=== PATIENT | male | born 1940 | race Caucasian/White ===

== ENCOUNTER 2020-11-21 13:38 | Inpatient (IN) | payer OTHER ==
[2020-11-21 15:16] LABS: INR 1.12 (0.83-1.09); PROTHROMBIN TIME (PATIENT) 13.5 SEC (9.7-13.0)
[2020-11-21 15:19] LABS: ACTIVATED PTT 29.1 SECONDS (25.2-36.5)
[2020-11-21 15:20] LABS: BASO % 0.6 % (0-2.0); EOS % 0.8 % (0-4.5); HEMATOCRIT 37.9 % (35.4-49); HEMOGLOBIN 13.1 GM/dL (11.7-16.9); LYMPH % 9.8 % (8-40); MCH 32.3 pg (25.7-33.7); MCHC 34.4 g/dl (32.0-35.9); MEAN CELL VOLUME 93.8 fl (80-96); MEAN PLT VOLUME 9.2 fl (7.5-11.1); MONO % 10.4 % (3.8-10.2); NEUT % 78.4 % (42.8-82.8); PLATELET COUNT 233 K/MM3 (134-434); RBC 4.04 M/mm3 (4.00-5.60); RDW 13.4 % (11.9-15.9); WHITE BLOOD COUNT 7.7 K/mm3 (4.0-10.0)
[2020-11-21 15:25] LABS: CHLORIDE 108 mmol/L (98-107); SODIUM 138 mmol/L (136-145)
[2020-11-21 15:27] LABS: ALBUMIN 4.3 g/dl (3.4-5.0); CALCIUM 9.5 mg/dL (8.5-10.1)
[2020-11-21 15:28] LABS: ANION GAP 9 MMOL/L (8-16); BLOOD UREA NITROGEN 31.6 mg/dL (7-18); CO2 21 mmol/L (21-32); GLUCOSE,RANDOM 85 mg/dL (74-106)
[2020-11-21 15:31] LABS: CREATININE 1.5 mg/dL (0.55-1.3); SGOT/AST 31 U/L (15-37); SGPT/ALT 10 U/L (13-61)
[2020-11-21 15:32] LABS: BILIRUBIN,TOTAL 1.8 mg/dL (0.2-1); TOT PROT 7.5 g/dl (6.4-8.2)
[2020-11-21 15:33] LABS: ALK PHOS 97 U/L (45-117)
[2020-11-21 15:36] LABS: EPI CELLS 2 /uL (0-25.1); HYALINE CASTS 0 /uL (0-3.1); PH,URINE 6.5 (5.0-8.0); URINE APPEARANCE CLOUDY; URINE BILIRUBIN NEGATIVE (NEGATIVE); URINE COLOR YELLOW; URINE GLUCOSE (UA) NEGATIVE (NEGATIVE); URINE KETONE 2+ (NEGATIVE); URINE LEUK ESTERASE 3+ (NEGATIVE); URINE NITRITE NEGATIVE (NEGATIVE); URINE PROTEIN 1+ (NEGATIVE); URINE RBC 44 /uL (0-23.9); URINE WBC 1843 /uL (0-25.8)
[2020-11-21] MEDS ORDERED: SODIUM CHLORIDE 0.9% 500 ML INFUS.BAG IV ONE (16:27)
[2020-11-21] MEDS ORDERED: cefTRIAXone SODIUM 1 GM VIAL IVPB ONE (16:31)
[2020-11-21] MEDS ORDERED: CEFTRIAXONE 1 GM/50 ML BAG ONE (16:53)
[2020-11-21 17:39] LABS: URINE BACTERIA MANY /uL (0-1359)
[2020-11-21] MEDS ORDERED: CARBIDOPA/LEVODOPA 25/250 TABLET (FP) PO SCH (22:00)
[2020-11-22 01:37] VITALS: BMI 21.1
[2020-11-22] MEDS: HEPARIN NA (PORCINE) 5,000 UNITS/ML 1ML VIAL SQ SCH ×4 (01:46→21:28)
[2020-11-22] MEDS: RIVASTIGMINE TARTRATE 3 MG CAPSULE PO SCH ×3 (01:46→21:28)
[2020-11-22] MEDS: SODIUM CHLORIDE 1,000 ML IV SCH ×4 (01:47→21:27)
[2020-11-22] MEDS ORDERED: rOPINIRole HCL 0.5 MG TABLET PO SCH (06:00)
[2020-11-22] MEDS: CARBIDOPA/LEVODOPA 25/250 TABLET (FP) PO SCH ×4 (06:23→19:02)
[2020-11-22] MEDS: rOPINIRole HCL 0.5 MG TABLET PO SCH ×3 (06:23→17:50)
[2020-11-22] MEDS ORDERED: PT OWN MED DRAWER 7, Y5N ONE ×6 (07:35→20:31)
[2020-11-22 08:51] LABS: HEMATOCRIT 34.7 % (35.4-49); MCH 32.2 pg (25.7-33.7); MCHC 34.8 g/dl (32.0-35.9); MEAN CELL VOLUME 92.8 fl (80-96); MEAN PLT VOLUME 8.9 fl (7.5-11.1); PLATELET COUNT 209 K/MM3 (134-434); RBC 3.74 M/mm3 (4.00-5.60); WHITE BLOOD COUNT 7.5 K/mm3 (4.0-10.0)
[2020-11-22 09:19] LABS: CALCIUM 8.7 mg/dL (8.5-10.1)
[2020-11-22 09:20] LABS: BLOOD UREA NITROGEN 26.2 mg/dL (7-18); MAGNESIUM 2.4 mg/dL (1.8-2.4)
[2020-11-22 09:23] LABS: CREATININE 1.2 mg/dL (0.55-1.3); PHOSPHOROUS 3.5 mg/dL (2.5-4.9)
[2020-11-22] MEDS ORDERED: cefTRIAXone SODIUM 1 GM VIAL ONE (09:43)
[2020-11-22] MEDS ORDERED: DEXTROSE 5%-WATER - 50 ML IVPB ONE (09:44)
[2020-11-22] MEDS ORDERED: PATIENT'S OWN MEDICATION (NON-FORMULARY) (Pimavanserin Tartrate [Nuplazid] 34 MG Capsule) PO SCH (10:00)
[2020-11-22] MEDS: CEFTRIAXONE 1 GM in DEXTROSE 5%-WATER - 50 ML IVPB SCH (10:11)
[2020-11-22] MEDS ORDERED: ACETAMINOPHEN 325 MG TABLET (FP) PO PRN (17:18)
[2020-11-22] MEDS: LIDOCAINE 5% TOPICAL PATCH TP SCH (17:47)
[2020-11-22] MEDS: LIDOCAINE PATCH REMOVAL MC SCH (21:30)
[2020-11-22] MEDS ORDERED: rOPINIRole HCL 1 MG TABLET (FP) PO SCH (22:00)
[2020-11-23] MEDS: SODIUM CHLORIDE 1,000 ML IV SCH ×2 (04:32→18:55)
[2020-11-23] MEDS: CARBIDOPA/LEVODOPA 25/250 TABLET (FP) PO SCH ×4 (06:31→18:04)
[2020-11-23] MEDS: HEPARIN NA (PORCINE) 5,000 UNITS/ML 1ML VIAL SQ SCH ×3 (06:31→21:55)
[2020-11-23] MEDS: rOPINIRole HCL 0.5 MG TABLET PO SCH ×3 (06:31→17:02)
[2020-11-23] MEDS ORDERED: PT OWN MED DRAWER 7, Y5N ONE ×2 (10:34→21:09)
[2020-11-23] MEDS ORDERED: cefTRIAXone SODIUM 1 GM VIAL ONE (10:34)
[2020-11-23] MEDS ORDERED: DEXTROSE 5%-WATER - 50 ML IVPB ONE (10:35)
[2020-11-23] MEDS: LIDOCAINE 5% TOPICAL PATCH TP SCH (11:32)
[2020-11-23] MEDS: CEFTRIAXONE 1 GM in DEXTROSE 5%-WATER - 50 ML IVPB SCH (11:33)
[2020-11-23] MEDS: RIVASTIGMINE TARTRATE 3 MG CAPSULE PO SCH ×2 (11:34→21:55)
[2020-11-23 12:49] LABS: BASO % 0.5 % (0-2.0); EOS % 0.6 % (0-4.5); HEMATOCRIT 35.5 % (35.4-49); HEMOGLOBIN 12.1 GM/dL (11.7-16.9); LYMPH % 4.9 % (8-40); MCH 32.4 pg (25.7-33.7); MCHC 34.1 g/dl (32.0-35.9); MEAN CELL VOLUME 94.9 fl (80-96); MEAN PLT VOLUME 9.3 fl (7.5-11.1); MONO % 9.4 % (3.8-10.2); NEUT % 84.6 % (42.8-82.8); PLATELET COUNT 220 K/MM3 (134-434); RBC 3.74 M/mm3 (4.00-5.60); RDW 13.2 % (11.9-15.9); WHITE BLOOD COUNT 8.2 K/mm3 (4.0-10.0)
[2020-11-23 13:14] LABS: ALBUMIN 3.5 g/dl (3.4-5.0); BLOOD UREA NITROGEN 23.7 mg/dL (7-18); CALCIUM 8.5 mg/dL (8.5-10.1); MAGNESIUM 2.3 mg/dL (1.8-2.4)
[2020-11-23 13:17] LABS: CREATININE 1.2 mg/dL (0.55-1.3)
[2020-11-23 13:18] LABS: BILIRUBIN,TOTAL 0.6 mg/dL (0.2-1)
[2020-11-23 13:19] LABS: TOT PROT 6.6 g/dl (6.4-8.2)
[2020-11-23] MEDS: LIDOCAINE PATCH REMOVAL MC SCH (21:55)
[2020-11-24] MEDS ORDERED: PT OWN MED DRAWER 7, Y5N ONE ×2 (05:58→20:41)
[2020-11-24] MEDS: rOPINIRole HCL 0.5 MG TABLET PO SCH ×3 (06:46→17:40)
[2020-11-24] MEDS: CARBIDOPA/LEVODOPA 25/250 TABLET (FP) PO SCH ×4 (06:46→18:05)
[2020-11-24] MEDS: HEPARIN NA (PORCINE) 5,000 UNITS/ML 1ML VIAL SQ SCH ×2 (06:46→13:38)
[2020-11-24] MEDS ORDERED: DEXTROSE 5%-WATER - 50 ML IVPB ONE (09:43)
[2020-11-24] MEDS ORDERED: cefTRIAXone SODIUM 1 GM VIAL ONE (09:43)
[2020-11-24] MEDS: RIVASTIGMINE TARTRATE 3 MG CAPSULE PO SCH (10:07)
[2020-11-24] MEDS: LIDOCAINE 5% TOPICAL PATCH TP SCH (10:08)
[2020-11-24] MEDS: CEFTRIAXONE 1 GM in DEXTROSE 5%-WATER - 50 ML IVPB SCH (10:11)
[2020-11-24 14:45] VITALS: BP 117/61; PULSE 57; TEMP 98.5
== END 2020-11-24 21:16 | disposition home or self-care (01) | DRG 689 ==
LOC: JER 13:38 → JERBED 16:32 → J8W 11-22 00:54
PROVIDERS: ADMIT Hospitalist; ATTEND Nurse Practitioner Family
DX: N39.0 Urinary tract infection, site not specified (principal); G92 Toxic encephalopathy; S22.42XA Multiple fractures of ribs, left side, initial encounter for closed fracture; N17.9 Acute kidney failure, unspecified; J98.11 Atelectasis; G20 Parkinson's disease; X58.XXXA Exposure to other specified factors, initial encounter; Y93.9 Activity, unspecified; Y92.89 Other specified places as the place of occurrence of the external cause; Y99.9 Unspecified external cause status; Z85.46 Personal history of malignant neoplasm of prostate; Z85.528 Personal history of other malignant neoplasm of kidney; Z90.5 Acquired absence of kidney
CPT/HCPCS: 36415; 70450-TC; 71045-TC-FY; 72125-TC; 72170-TC-FY; 74176-TC; 80048; 80053; 81003; 83605; 83735; 84100; 84443; 84484; 85025; 85027; 85610; 85730; 87040; 87086; 87186; 93005; 93010; 97116-GP; 97162-GP; 99285-25; C9803; J1644; U0003; U0005

== ENCOUNTER 2020-11-30 15:53 | Inpatient (IN) | payer OTHER ==
[2020-11-30 17:51] LABS: BASO % 0.5 % (0-2.0); EOS % 0.7 % (0-4.5); HEMATOCRIT 35.7 % (35.4-49); HEMOGLOBIN 12.3 GM/dL (11.7-16.9); LYMPH % 4.1 % (8-40); MCH 32.3 pg (25.7-33.7); MCHC 34.4 g/dl (32.0-35.9); MEAN CELL VOLUME 93.8 fl (80-96); MEAN PLT VOLUME 8.5 fl (7.5-11.1); MONO % 8.2 % (3.8-10.2); NEUT % 86.5 % (42.8-82.8); PLATELET COUNT 276 K/MM3 (134-434); RBC 3.81 M/mm3 (4.00-5.60); RDW 13.1 % (11.9-15.9); WHITE BLOOD COUNT 7.8 K/mm3 (4.0-10.0)
[2020-11-30 17:58] LABS: INR 1.1 (0.83-1.09); PROTHROMBIN TIME (PATIENT) 13.5 SEC (9.7-13.0)
[2020-11-30 18:00] LABS: ACTIVATED PTT 28.3 SECONDS (25.2-36.5)
[2020-11-30 18:08] LABS: CHLORIDE 107 mmol/L (98-107); SODIUM 139 mmol/L (136-145)
[2020-11-30 18:10] LABS: ALBUMIN 3.6 g/dl (3.4-5.0); ANION GAP 4 MMOL/L (8-16); BLOOD UREA NITROGEN 24.8 mg/dL (7-18); CALCIUM 9.5 mg/dL (8.5-10.1); CO2 27 mmol/L (21-32); GLUCOSE,RANDOM 100 mg/dL (74-106)
[2020-11-30 18:13] LABS: CREATININE 1.2 mg/dL (0.55-1.3); SGOT/AST 91 U/L (15-37); SGPT/ALT 13 U/L (13-61)
[2020-11-30 18:15] LABS: TOT PROT 6.9 g/dl (6.4-8.2)
[2020-11-30 18:47] LABS: ALK PHOS 132 U/L (45-117)
[2020-11-30 19:59] LABS: EPI CELLS 9 /uL (0-25.1); HYALINE CASTS 0 /uL (0-3.1); URINE APPEARANCE CLEAR; URINE BACTERIA 70 /uL (0-1359); URINE BILIRUBIN NEGATIVE (NEGATIVE); URINE COLOR ORANGE; URINE GLUCOSE (UA) NEGATIVE (NEGATIVE); URINE KETONE 1+ (NEGATIVE); URINE LEUK ESTERASE NEGATIVE (NEGATIVE); URINE NITRITE NEGATIVE (NEGATIVE); URINE PROTEIN 1+ (NEGATIVE); URINE RBC 3856 /uL (0-23.9); URINE UROBILINOGEN 0.2 mg/dL (0.2-1.0); URINE WBC 20 /uL (0-25.8)
[2020-11-30] MEDS ORDERED: SODIUM CHLORIDE 0.9% 500 ML INFUS.BAG IV ONE (20:43)
[2020-11-30] MEDS ORDERED: CEFTRIAXONE 1 GM/50 ML BAG ONE (23:21)
[2020-12-01] MEDS ORDERED: LACTATED RINGERS SOLUTION 1,000 ML IV SCH ×2 (01:00→14:59)
[2020-12-01] MEDS ORDERED: ACETAMINOPHEN 325 MG TABLET (FP) PO PRN (01:06)
[2020-12-01 03:37] VITALS: BMI 22.0
[2020-12-01] MEDS ORDERED: HEPARIN NA (PORCINE) 5,000 UNITS/ML 1ML VIAL SQ SCH (06:00)
[2020-12-01] MEDS: CARBIDOPA/LEVODOPA 25/250 TABLET (FP) PO SCH ×4 (06:10→18:29)
[2020-12-01] MEDS: rOPINIRole HCL 0.5 MG TABLET PO SCH ×3 (06:24→21:08)
[2020-12-01 08:30] LABS: HEMATOCRIT 33.1 % (35.4-49); HEMOGLOBIN 11.5 GM/dL (11.7-16.9); MCH 32.2 pg (25.7-33.7); MCHC 34.6 g/dl (32.0-35.9); MEAN CELL VOLUME 93.1 fl (80-96); MEAN PLT VOLUME 8.2 fl (7.5-11.1); PLATELET COUNT 252 K/MM3 (134-434); RBC 3.55 M/mm3 (4.00-5.60); RDW 13.3 % (11.9-15.9); WHITE BLOOD COUNT 6.5 K/mm3 (4.0-10.0)
[2020-12-01 09:28] LABS: BLOOD UREA NITROGEN 20.6 mg/dL (7-18); CALCIUM 8.6 mg/dL (8.5-10.1); MAGNESIUM 2.4 mg/dL (1.8-2.4)
[2020-12-01 09:31] LABS: PHOSPHOROUS 3.2 mg/dL (2.5-4.9)
[2020-12-01] MEDS: HEPARIN NA (PORCINE) 5,000 UNITS/ML 1ML VIAL SQ SCH ×2 (09:56→21:04)
[2020-12-01] MEDS ORDERED: RIVASTIGMINE TARTRATE 3 MG CAPSULE PO SCH (10:00)
[2020-12-01] MEDS ORDERED: CARBIDOPA/LEVODOPA 25/250 TABLET (FP) PO SCH (10:00)
[2020-12-01] MEDS ORDERED: PT OWN MED DRAWER 7, Y5N ONE ×2 (10:03→21:00)
[2020-12-01] MEDS ORDERED: QUEtiapine FUMARATE 25 MG TABLET ONE (21:00)
[2020-12-01] MEDS: QUEtiapine FUMARATE 50 MG TABLET PO SCH (21:06)
[2020-12-01] MEDS: NYSTATIN POWDER 100,000 UNITS/GM - 15 GM TOPICAL POWDER TP SCH (21:06)
[2020-12-01] MEDS: RIVASTIGMINE TARTRATE 1.5 MG CAPSULE PO SCH (21:39)
[2020-12-02] MEDS: CARBIDOPA/LEVODOPA 25/250 TABLET (FP) PO SCH ×4 (06:13→22:13)
[2020-12-02 09:05] LABS: BASO % 0.8 % (0-2.0); EOS % 2.5 % (0-4.5); HEMATOCRIT 32.7 % (35.4-49); HEMOGLOBIN 11.2 GM/dL (11.7-16.9); LYMPH % 6.4 % (8-40); MCH 32.4 pg (25.7-33.7); MCHC 34.3 g/dl (32.0-35.9); MEAN CELL VOLUME 94.5 fl (80-96); MEAN PLT VOLUME 8.7 fl (7.5-11.1); MONO % 7.8 % (3.8-10.2); NEUT % 82.5 % (42.8-82.8); PLATELET COUNT 230 K/MM3 (134-434); RBC 3.47 M/mm3 (4.00-5.60); RDW 13.2 % (11.9-15.9); WHITE BLOOD COUNT 5.4 K/mm3 (4.0-10.0)
[2020-12-02 09:28] LABS: CALCIUM 8.7 mg/dL (8.5-10.1)
[2020-12-02 09:29] LABS: BLOOD UREA NITROGEN 20.4 mg/dL (7-18); MAGNESIUM 2.4 mg/dL (1.8-2.4)
[2020-12-02 09:32] LABS: CREATININE 1.1 mg/dL (0.55-1.3)
[2020-12-02 09:34] LABS: BILIRUBIN,TOTAL 0.5 mg/dL (0.2-1); TOT PROT 5.6 g/dl (6.4-8.2)
[2020-12-02 09:39] LABS: ALBUMIN 2.8 g/dl (3.4-5.0)
[2020-12-02] MEDS: PATIENT'S OWN MEDICATION (NON-FORMULARY) (Pimavanserin Tartrate [Nuplazid] 34 MG Capsule) PO SCH (10:00)
[2020-12-02] MEDS ORDERED: PT OWN MED DRAWER 7, Y5N ONE (10:06)
[2020-12-02] MEDS ORDERED: DEXTROSE 5%-WATER - 50 ML IVPB ONE (10:07)
[2020-12-02] MEDS ORDERED: cefTRIAXone SODIUM 1 GM VIAL ONE (10:07)
[2020-12-02] MEDS: RIVASTIGMINE TARTRATE 1.5 MG CAPSULE PO SCH ×2 (10:25→22:14)
[2020-12-02] MEDS: HEPARIN NA (PORCINE) 5,000 UNITS/ML 1ML VIAL SQ SCH ×2 (10:25→22:14)
[2020-12-02] MEDS: CEFTRIAXONE 1 GM in DEXTROSE 5%-WATER - 50 ML IVPB SCH (10:26)
[2020-12-02] MEDS: NYSTATIN POWDER 100,000 UNITS/GM - 15 GM TOPICAL POWDER TP SCH ×2 (10:26→22:14)
[2020-12-02] MEDS: SODIUM CHLORIDE 1,000 ML IV SCH (15:43)
[2020-12-02] MEDS ORDERED: QUEtiapine FUMARATE 25 MG TABLET ONE (21:53)
[2020-12-02] MEDS: QUEtiapine FUMARATE 50 MG TABLET PO SCH (22:14)
[2020-12-02] MEDS: rOPINIRole HCL 0.5 MG TABLET PO SCH (23:10)
[2020-12-03] MEDS: SODIUM CHLORIDE 1,000 ML IV SCH ×3 (05:27→23:43)
[2020-12-03] MEDS: CARBIDOPA/LEVODOPA 25/250 TABLET (FP) PO SCH ×4 (06:45→21:11)
[2020-12-03] MEDS ORDERED: cefTRIAXone SODIUM 1 GM VIAL ONE (08:51)
[2020-12-03] MEDS ORDERED: DEXTROSE 5%-WATER - 50 ML IVPB ONE (08:51)
[2020-12-03 09:27] LABS: BASO % 1.2 % (0-2.0); EOS % 3.7 % (0-4.5); HEMATOCRIT 32.7 % (35.4-49); HEMOGLOBIN 11.2 GM/dL (11.7-16.9); LYMPH % 7.7 % (8-40); MCH 32.3 pg (25.7-33.7); MCHC 34.2 g/dl (32.0-35.9); MEAN CELL VOLUME 94.5 fl (80-96); MEAN PLT VOLUME 8.7 fl (7.5-11.1); MONO % 7.6 % (3.8-10.2); NEUT % 79.8 % (42.8-82.8); PLATELET COUNT 223 K/MM3 (134-434); RBC 3.46 M/mm3 (4.00-5.60); RDW 13.4 % (11.9-15.9); WHITE BLOOD COUNT 5.1 K/mm3 (4.0-10.0)
[2020-12-03] MEDS: PATIENT'S OWN MEDICATION (NON-FORMULARY) (Pimavanserin Tartrate [Nuplazid] 34 MG Capsule) PO SCH ×2 (09:29→09:30)
[2020-12-03] MEDS: RIVASTIGMINE TARTRATE 1.5 MG CAPSULE PO SCH ×2 (09:31→21:12)
[2020-12-03] MEDS: NYSTATIN POWDER 100,000 UNITS/GM - 15 GM TOPICAL POWDER TP SCH ×2 (09:31→21:12)
[2020-12-03] MEDS: CEFTRIAXONE 1 GM in DEXTROSE 5%-WATER - 50 ML IVPB SCH (09:32)
[2020-12-03] MEDS: HEPARIN NA (PORCINE) 5,000 UNITS/ML 1ML VIAL SQ SCH ×2 (09:33→21:12)
[2020-12-03 09:52] LABS: ALBUMIN 2.7 g/dl (3.4-5.0); BLOOD UREA NITROGEN 22.1 mg/dL (7-18); CALCIUM 8.1 mg/dL (8.5-10.1)
[2020-12-03 09:53] LABS: MAGNESIUM 2.1 mg/dL (1.8-2.4)
[2020-12-03 09:55] LABS: CREATININE 1.1 mg/dL (0.55-1.3)
[2020-12-03 09:57] LABS: BILIRUBIN,TOTAL 0.5 mg/dL (0.2-1); TOT PROT 5.5 g/dl (6.4-8.2)
[2020-12-03] MEDS ORDERED: QUEtiapine FUMARATE 25 MG TABLET ONE (20:56)
[2020-12-03] MEDS: rOPINIRole HCL 0.5 MG TABLET PO SCH (21:12)
[2020-12-03] MEDS: QUEtiapine FUMARATE 50 MG TABLET PO SCH (21:13)
[2020-12-04] MEDS: CARBIDOPA/LEVODOPA 25/250 TABLET (FP) PO SCH ×4 (06:05→18:31)
[2020-12-04 09:09] LABS: BASO % 0.6 % (0-2.0); EOS % 2.5 % (0-4.5); HEMATOCRIT 35.1 % (35.4-49); HEMOGLOBIN 11.9 GM/dL (11.7-16.9); LYMPH % 5.2 % (8-40); MCH 32.1 pg (25.7-33.7); MCHC 33.8 g/dl (32.0-35.9); MONO % 7.1 % (3.8-10.2); NEUT % 84.6 % (42.8-82.8); PLATELET COUNT 239 K/MM3 (134-434); RBC 3.69 M/mm3 (4.00-5.60); WHITE BLOOD COUNT 7.8 K/mm3 (4.0-10.0)
[2020-12-04 09:29] LABS: ALBUMIN 2.9 g/dl (3.4-5.0); BLOOD UREA NITROGEN 19.1 mg/dL (7-18); CALCIUM 8.1 mg/dL (8.5-10.1)
[2020-12-04 09:31] LABS: MAGNESIUM 2.1 mg/dL (1.8-2.4)
[2020-12-04 09:32] LABS: CREATININE 1.1 mg/dL (0.55-1.3)
[2020-12-04 09:36] LABS: BILIRUBIN,TOTAL 0.5 mg/dL (0.2-1)
[2020-12-04] MEDS ORDERED: PT OWN MED DRAWER 7, Y5N ONE ×4 (10:35→22:40)
[2020-12-04] MEDS ORDERED: DEXTROSE 5%-WATER - 50 ML IVPB ONE (10:35)
[2020-12-04] MEDS ORDERED: cefTRIAXone SODIUM 1 GM VIAL ONE ×2 (10:35→10:36)
[2020-12-04] MEDS: CEFTRIAXONE 1 GM in DEXTROSE 5%-WATER - 50 ML IVPB SCH (10:50)
[2020-12-04] MEDS: PATIENT'S OWN MEDICATION (NON-FORMULARY) (Pimavanserin Tartrate [Nuplazid] 34 MG Capsule) PO SCH (10:50)
[2020-12-04] MEDS: HEPARIN NA (PORCINE) 5,000 UNITS/ML 1ML VIAL SQ SCH ×2 (10:51→22:31)
[2020-12-04] MEDS: NYSTATIN POWDER 100,000 UNITS/GM - 15 GM TOPICAL POWDER TP SCH ×2 (10:52→22:32)
[2020-12-04] MEDS: RIVASTIGMINE TARTRATE 1.5 MG CAPSULE PO SCH ×2 (10:52→22:31)
[2020-12-04] MEDS: SODIUM CHLORIDE 1,000 ML IV SCH ×2 (14:34→18:31)
[2020-12-04] MEDS ORDERED: QUEtiapine FUMARATE 25 MG TABLET ONE (22:17)
[2020-12-04] MEDS: rOPINIRole HCL 0.5 MG TABLET PO SCH (22:31)
[2020-12-04] MEDS: QUEtiapine FUMARATE 50 MG TABLET PO SCH (22:32)
[2020-12-05] MEDS: CARBIDOPA/LEVODOPA 25/250 TABLET (FP) PO SCH ×5 (06:46→18:06)
[2020-12-05] MEDS: RIVASTIGMINE TARTRATE 1.5 MG CAPSULE PO SCH (09:48)
[2020-12-05] MEDS: NYSTATIN POWDER 100,000 UNITS/GM - 15 GM TOPICAL POWDER TP SCH ×2 (09:49→22:11)
[2020-12-05] MEDS: SODIUM CHLORIDE 1,000 ML IV SCH ×3 (09:49→23:19)
[2020-12-05] MEDS: PATIENT'S OWN MEDICATION (NON-FORMULARY) (Pimavanserin Tartrate [Nuplazid] 34 MG Capsule) PO SCH (09:51)
[2020-12-05] MEDS: HEPARIN NA (PORCINE) 5,000 UNITS/ML 1ML VIAL SQ SCH ×2 (09:54→22:11)
[2020-12-05 10:56] LABS: BASO % 0.6 % (0-2.0); EOS % 3.3 % (0-4.5); HEMATOCRIT 34.6 % (35.4-49); HEMOGLOBIN 11.9 GM/dL (11.7-16.9); LYMPH % 6.8 % (8-40); MCH 32.3 pg (25.7-33.7); MCHC 34.4 g/dl (32.0-35.9); MEAN CELL VOLUME 93.8 fl (80-96); MEAN PLT VOLUME 8.6 fl (7.5-11.1); MONO % 7.4 % (3.8-10.2); NEUT % 81.9 % (42.8-82.8); PLATELET COUNT 244 K/MM3 (134-434); RBC 3.69 M/mm3 (4.00-5.60); RDW 13.4 % (11.9-15.9); WHITE BLOOD COUNT 5.9 K/mm3 (4.0-10.0)
[2020-12-05 11:12] LABS: ALBUMIN 2.8 g/dl (3.4-5.0); CALCIUM 8.8 mg/dL (8.5-10.1)
[2020-12-05 11:13] LABS: BLOOD UREA NITROGEN 16.8 mg/dL (7-18); MAGNESIUM 2.4 mg/dL (1.8-2.4)
[2020-12-05 11:16] LABS: CREATININE 1.1 mg/dL (0.55-1.3)
[2020-12-05 11:17] LABS: BILIRUBIN,TOTAL 0.4 mg/dL (0.2-1); TOT PROT 5.9 g/dl (6.4-8.2)
[2020-12-05] MEDS ORDERED: QUEtiapine FUMARATE 25 MG TABLET ONE (21:28)
[2020-12-05] MEDS: QUEtiapine FUMARATE 50 MG TABLET PO SCH (22:12)
[2020-12-06] MEDS ORDERED: PT OWN MED DRAWER 7, Y5N ONE (09:29)
[2020-12-06 09:43] VITALS: BP 111/63; PULSE 53; TEMP 98.2
[2020-12-06] MEDS: PATIENT'S OWN MEDICATION (NON-FORMULARY) (Pimavanserin Tartrate [Nuplazid] 34 MG Capsule) PO SCH (09:51)
[2020-12-06] MEDS: HEPARIN NA (PORCINE) 5,000 UNITS/ML 1ML VIAL SQ SCH (09:52)
[2020-12-06] MEDS: NYSTATIN POWDER 100,000 UNITS/GM - 15 GM TOPICAL POWDER TP SCH (09:53)
[2020-12-06] MEDS ORDERED: QUEtiapine FUMARATE 25 MG TABLET PO SCH (10:00)
[2020-12-06] MEDS ORDERED: POLYETHYLENE GLYCOL 3350 119 GM BTL PO ONE (10:45)
== END 2020-12-06 12:21 | DRG 689 ==
LOC: JER 15:53 → JERBED 23:04 → J5S 12-01 02:10
PROVIDERS: ADMIT Internal Medicine; ATTEND Nurse Practitioner Family
DX: N39.0 Urinary tract infection, site not specified (principal); G93.41 Metabolic encephalopathy; S22.42XA Multiple fractures of ribs, left side, initial encounter for closed fracture; J98.11 Atelectasis; G20 Parkinson's disease; L40.9 Psoriasis, unspecified; Z20.822 Contact with and (suspected) exposure to COVID-19; F29 Unspecified psychosis not due to a substance or known physiological condition; R26.2 Difficulty in walking, not elsewhere classified; W19.XXXA Unspecified fall, initial encounter; Y93.89 Activity, other specified; Y92.89 Other specified places as the place of occurrence of the external cause; Y99.8 Other external cause status; Z85.46 Personal history of malignant neoplasm of prostate; Z85.528 Personal history of other malignant neoplasm of kidney
CPT/HCPCS: 36415; 71045-TC-FY; 71250-TC; 73030-TC-LT-FY; 73060-TC-LT-FY; 74176-TC; 80048; 80053; 81003; 83605; 83735; 84100; 84484; 85025; 85027; 85610; 85730; 87040; 87086; 93005; 93010; 94010; 97116-GP; 97161-GP; 99285-25; C9803; J1644; U0003; U0005